=== PATIENT | female | born 1965 | race American Indian/Alaskan Native ===

== ENCOUNTER 2017-10-30 19:46 | Emergency (ER) | payer MEDICAID ==
[2017-10-30 21:01] VITALS: BP 154/78
--- NOTE | 2017-10-30 23:23 | XRay Report ---
FINAL REPORT EXAM: XR FOOT 3+V LT HISTORY: LEG PAIN/SWELLING TECHNIQUE: 3 views Left foot PRIORS: None. FINDINGS: No fracture or dislocation identified. Joint spaces are within normal limits. No erosive bony change identified. No bony lesions are identified. IMPRESSION: Negative foot series
== END 2017-10-31 | disposition left against medical advice (07) ==
LOC: ED 19:46
DX: M79.89 Other specified soft tissue disorders (principal); Z53.21 Procedure and treatment not carried out due to patient leaving prior to being seen by health care provider